=== PATIENT | male | born 1995 | race Caucasian/White ===

== ENCOUNTER 2025-07-24 16:51 | Emergency (ER) | payer MEDICAID, OTHER ==
[~2025-07-24] VITALS: Ht 170.2 cm; Wt 73.0 kg
[2025-07-24 16:54] VITALS: O2SAT 98
[2025-07-24 19:39] LABS: BASOPHILS % 0.1 % (0.0-2.0); EOSINOPHILS % 0.0 % (0.0-5.0); HEMATOCRIT. 42.7 % (42.0-52.0); HEMOGLOBIN. 14.4 g/dL (14.0-18.0); LYMPHOCYTES % 8.1 % (20.0-50.0); MEAN PLATELET VOLUME 8.5 fl (7.4-10.4); MONOCYTES % 6.1 % (2.0-8.0); NEUTROPHILS % 85.7 % (40.0-76.0); PLATELET 266 x1000/uL (130-400); RED BLOOD CELL COUNT 4.61 mill/uL (4.7-6.1); RED CELL DISTRIBUTION WIDTH 14.4 % (11.6-14.6)
[2025-07-24 19:53] LABS: CREATININE 1.0 mg/dL (0.6-1.3); UREA NITROGEN BLOOD < 5 mg/dL (9-23)
[2025-07-24 21:35] VITALS: TEMP 37
[2025-07-24] MEDS: SODIUM CHLORIDE 0.9% 1,000 ML IV ONE (21:39)
[2025-07-24 23:19] VITALS: BP 133/77; PULSE 130; RESP 13; O2SAT 97
== END 2025-07-24 23:26 ==
LOC: ER 16:51 → CMPBEDREQ 07-25 07:47
DX: S00.81XA Abrasion of other part of head, initial encounter (principal); F10.129 Alcohol abuse with intoxication, unspecified; R51.9 Headache, unspecified; Z79.899 Other long term (current) drug therapy; X58.XXXA Exposure to other specified factors, initial encounter; Y93.89 Activity, other specified; Y92.89 Other specified places as the place of occurrence of the external cause; Y99.8 Other external cause status
CPT/HCPCS: 99285; 96360; 70450; 80048; 85025; 36415; 93005; J7030